=== PATIENT | male | born 1990 | race Caucasian/White ===

== ENCOUNTER 2017-04-04 20:12 | Inpatient (IN) | payer MEDICAID ==
[~2017-04-04] VITALS: Ht 193 cm; Wt 79.4 kg
[~2017-04-04 20:12] MED LIST: OLAN10TA3 PO
[2017-04-04] MEDS ORDERED: PALI6 PO (20:16)
[2017-04-04 20:31] LABS: BASOPHILS % (AUTO) 0.3 % (0.0-2.0); EOSINOPHILS % (AUTO) 1.2 % (1.0-6.0); HEMOGLOBIN 18.5 g/dL (13.5-17.5); MEAN CORPUSCULAR HEMOGLOBIN 29.5 pg (26.0-34.0); MEAN CORPUSCULAR HGB CONC 32.9 G/dL (31.0-37.0); MEAN CORPUSCULAR VOLUME 90 fL (80-100); MONOCYTES # (AUTO) 0.7 K/uL (0.1-1.0); MONOCYTES % (AUTO) 6.1 % (2.0-9.0); NEUTROPHILS # (AUTO) 7.3 K/uL (1.8-7.7); NEUTROPHILS % (AUTO) 65.4 % (40.0-70.0); PLATELET COUNT (AUTO) 227 K/uL (150-450); RED BLOOD CELL COUNT(AUTO) 6.27 MIL/uL (4.50-5.90); RED CELL DISTRIBUTION WIDTH 13.7 % (11.5-14.5); WHITE BLOOD COUNT (AUTO) 11.2 K/uL (4.5-11.0)
[2017-04-04 20:37] LABS: HEMATOCRIT 56.3 % (41-53)
[2017-04-04 20:45] LABS: ANION GAP 13 mmol/L (8-16); CALCIUM, TOTAL 9.2 mg/dL (8.8-10.5); CARBON DIOXIDE 23 mmol/L (22-29); CHLORIDE 101 mmol/L (98-107); GLOMERULAR FILTR. RATE CALC > 60 mL/min (>60); POTASSIUM 4.3 mmol/L (3.5-5.1); SODIUM SERUM 137 mmol/L (136-145); UREA NITROGEN, BLOOD 8 mg/dL (7-18)
[2017-04-04 20:53] LABS: ALANINE AMINOTRANSFERASE 36 U/L (12-78); ALBUMIN 4.8 g/dL (3.4-5.0); ASPARTATE AMINOTRANSFERASE 20 U/L (15-37); BILIRUBIN,TOTAL 0.6 mg/dL (0.1-1.0)
[2017-04-04] MEDS ORDERED: HALOPERIDOL LACTATE 5 MG/ML VIAL IM ONE (21:00)
[2017-04-04] MEDS ORDERED: LORazepam 2 MG/ML VIAL IM ONE (21:00)
[2017-04-04] MEDS ORDERED: DiphenhydrAMINE HCL 50 MG/ML VIAL IM ONE (21:00)
[2017-04-04] MEDS ORDERED: OLANZapine 5 MG RAPDIS TABLET PO PRN (22:30)
[2017-04-04 22:36] VITALS: BP 148/96
[2017-04-05 01:14] VITALS: BP 142/90
[2017-04-05 07:57] LABS: CHOL/HDL RATIO 5.8 (4.2-7.3)
[2017-04-05 09:06] VITALS: BP 105/62
[2017-04-05] MEDS: PALIPERIDONE 6 MG ER TABLET PO SCH (10:38)
[2017-04-05] MEDS ORDERED: ACETAMINOPHEN 325 MG TABLET PO PRN (12:00)
[2017-04-05] MEDS ORDERED: HydrOXYzine PAMOATE 50 MG CAPSULE PO PRN (12:00)
[2017-04-05] MEDS ORDERED: PROMETHAZINE HCL 25 MG TABLET PO PRN (12:00)
[2017-04-05] MEDS ORDERED: TUBERCULIN, PURIFIED PROTEIN DERIVATIVE 5 TU/0.1 ML SYG ID ONE (12:00)
[2017-04-05] MEDS ORDERED: MAG HYDROX/AL HYDROX/SIMETH ES 30 ML SUSPENSION UDCUP PO PRN (12:00)
[2017-04-05] MEDS ORDERED: MAGNESIUM HYDROXIDE SUSPENSION 30 ML UDCUP PO PRN (12:00)
[2017-04-05] MEDS ORDERED: GuaiFENesin/D-METHORPHAN [SUGAR-FREE] 200-20MG/10 ML SYRUP UDCUP PO PRN (12:00)
[2017-04-05] MEDS ORDERED: LOPERAMIDE HCL 2 MG CAPSULE PO PRN (12:00)
[2017-04-05] MEDS: THIAMINE HCL 100 MG TABLET PO SCH (16:59)
[2017-04-06] MEDS: NALTREXONE HCL 50 MG TABLET PO SCH (08:54)
[2017-04-06] MEDS: PALIPERIDONE 6 MG ER TABLET PO SCH (08:54)
[2017-04-06] MEDS: THIAMINE HCL 100 MG TABLET PO SCH ×2 (08:54→16:29)
[2017-04-06] MEDS: FOLIC ACID 1 MG TABLET PO SCH (08:54)
[2017-04-06] MEDS: MULTIVITAMINS WITH MINERALS, THERAPEUTIC TABLET PO SCH (08:54)
[2017-04-06 08:55] VITALS: BP 121/68
[2017-04-06] MEDS ORDERED: PALI234D IM (10:20)
[2017-04-06 16:05] VITALS: BP 121/68
[2017-04-06] MEDS: LORazepam 2 MG TABLET PO PRN (17:40)
[2017-04-07 08:31] VITALS: BP 125/77
[2017-04-07 08:32] VITALS: BP 125/77
[2017-04-07] MEDS: PALIPERIDONE 6 MG ER TABLET PO SCH (08:52)
[2017-04-07] MEDS: NALTREXONE HCL 50 MG TABLET PO SCH (08:52)
[2017-04-07] MEDS: FOLIC ACID 1 MG TABLET PO SCH (08:55)
[2017-04-07] MEDS: MULTIVITAMINS WITH MINERALS, THERAPEUTIC TABLET PO SCH (08:55)
[2017-04-07] MEDS: THIAMINE HCL 100 MG TABLET PO SCH ×2 (08:55→16:52)
[2017-04-07 16:25] VITALS: BP 119/67
[2017-04-07] MEDS: LORazepam 2 MG TABLET PO PRN (17:16)
[2017-04-08] MEDS: THIAMINE HCL 100 MG TABLET PO SCH ×2 (07:44→16:02)
[2017-04-08] MEDS: FOLIC ACID 1 MG TABLET PO SCH (07:45)
[2017-04-08] MEDS: NALTREXONE HCL 50 MG TABLET PO SCH (07:46)
[2017-04-08] MEDS: PALIPERIDONE 6 MG ER TABLET PO SCH (07:46)
[2017-04-08] MEDS: LORazepam 2 MG TABLET PO PRN ×2 (07:47→15:50)
[2017-04-08] MEDS: MULTIVITAMINS WITH MINERALS, THERAPEUTIC TABLET PO SCH (07:47)
[2017-04-08 08:31] VITALS: BP 125/76
[2017-04-08 16:17] VITALS: BP 113/73
[2017-04-08 16:30] VITALS: BP 113/73
[2017-04-08] MEDS: ZOLPIDEM TARTRATE 10 MG TABLET PO PRN (23:00)
[2017-04-09] MEDS: LORazepam 2 MG TABLET PO PRN (04:52)
[2017-04-09] MEDS: THIAMINE HCL 100 MG TABLET PO SCH ×2 (08:23→16:29)
[2017-04-09] MEDS: NALTREXONE HCL 50 MG TABLET PO SCH (08:23)
[2017-04-09] MEDS: MULTIVITAMINS WITH MINERALS, THERAPEUTIC TABLET PO SCH (08:23)
[2017-04-09] MEDS: FOLIC ACID 1 MG TABLET PO SCH (08:23)
[2017-04-09] MEDS: PALIPERIDONE 6 MG ER TABLET PO SCH (08:24)
[2017-04-09 09:07] VITALS: BP 119/68
[2017-04-09] MEDS: ZOLPIDEM TARTRATE 10 MG TABLET PO PRN (20:36)
[2017-04-10] MEDS: LORazepam 2 MG TABLET PO PRN (08:22)
[2017-04-10] MEDS: MULTIVITAMINS WITH MINERALS, THERAPEUTIC TABLET PO SCH (08:22)
[2017-04-10] MEDS: FOLIC ACID 1 MG TABLET PO SCH (08:22)
[2017-04-10] MEDS: PALIPERIDONE 6 MG ER TABLET PO SCH (08:22)
[2017-04-10] MEDS: THIAMINE HCL 100 MG TABLET PO SCH ×2 (08:22→16:26)
[2017-04-10] MEDS: NALTREXONE HCL 50 MG TABLET PO SCH (08:23)
[2017-04-10 08:51] VITALS: BP 131/84
[2017-04-10 16:54] VITALS: BP 124/68
[2017-04-11] MEDS: ZOLPIDEM TARTRATE 10 MG TABLET PO PRN (02:41)
[2017-04-11] MEDS: LORazepam 2 MG TABLET PO PRN ×2 (02:41→18:20)
[2017-04-11] MEDS: NALTREXONE HCL 50 MG TABLET PO SCH (08:47)
[2017-04-11] MEDS: MULTIVITAMINS WITH MINERALS, THERAPEUTIC TABLET PO SCH (08:47)
[2017-04-11] MEDS: FOLIC ACID 1 MG TABLET PO SCH (08:47)
[2017-04-11] MEDS: THIAMINE HCL 100 MG TABLET PO SCH ×2 (08:47→16:20)
[2017-04-11] MEDS: PALIPERIDONE 6 MG ER TABLET PO SCH (08:48)
[2017-04-11 08:52] VITALS: BP 106/81
[2017-04-11 18:18] VITALS: BP 125/72
[2017-04-12] MEDS: FOLIC ACID 1 MG TABLET PO SCH (07:58)
[2017-04-12] MEDS: THIAMINE HCL 100 MG TABLET PO SCH ×2 (07:58→17:16)
[2017-04-12] MEDS: MULTIVITAMINS WITH MINERALS, THERAPEUTIC TABLET PO SCH (07:58)
[2017-04-12] MEDS: NALTREXONE HCL 50 MG TABLET PO SCH (07:58)
[2017-04-12] MEDS: PALIPERIDONE 6 MG ER TABLET PO SCH (07:59)
[2017-04-12 08:30] VITALS: BP 133/99
[2017-04-12 16:00] VITALS: BP 130/89
[2017-04-12] MEDS ORDERED: PALI6 PO (17:19)
[2017-04-12] MEDS ORDERED: NALT50 PO (17:19)
== END 2017-04-12 20:05 | disposition home or self-care (01) | DRG 750 ==
LOC: EMS 20:17 → 3EC 22:50
PROVIDERS: ADMIT Psychiatry & Neurology Psychiatry; ATTEND Psychiatry & Neurology Psychiatry
DX: F20.0 Paranoid schizophrenia (principal); G93.41 Metabolic encephalopathy; J44.9 Chronic obstructive pulmonary disease, unspecified; Z91.14 Patient's other noncompliance with medication regimen; F19.10 Other psychoactive substance abuse, uncomplicated; F17.200 Nicotine dependence, unspecified, uncomplicated
CPT/HCPCS: 86592; 96372; 99285; G0480; J1200; J1630; J2060

== ENCOUNTER 2017-04-13 18:12 | Emergency (ER) | payer MEDICAID ==
[~2017-04-13] VITALS: Ht 190.5 cm; Wt 81.8 kg
[~2017-04-13 18:12] MED LIST changes: +NALT50 PO; -OLAN10TA3 PO; +PALI6 PO
[2017-04-13 18:50] VITALS: BP 134/82
[2017-04-13] MEDS ORDERED: IBUPROFEN 800 MG TABLET PO ONE (19:00)
[2017-04-14] MEDS ORDERED: DIVA500T35 PO (10:45)
[2017-04-14] MEDS ORDERED: OLAN10TA3 PO (10:45)
== END 2017-04-13 19:22 | disposition home or self-care (01) ==
LOC: EMS 18:17
DX: S90.822A Blister (nonthermal), left foot, initial encounter (principal); S90.821A Blister (nonthermal), right foot, initial encounter; X58.XXXA Exposure to other specified factors, initial encounter; Y93.01 Activity, walking, marching and hiking; Y92.89 Other specified places as the place of occurrence of the external cause; Y99.8 Other external cause status
CPT/HCPCS: 99283

== ENCOUNTER 2017-04-14 10:17 | Inpatient (IN) | payer MEDICAID ==
[~2017-04-14] VITALS: Ht 180.3 cm; Wt 79.8 kg
[2017-04-14] MEDS ORDERED: DIVA500T35 PO (10:45)
[2017-04-14] MEDS ORDERED: OLAN10TA3 PO (10:45)
[2017-04-14 10:58] LABS: BASOPHILS % (AUTO) 0.2 % (0.0-2.0); EOSINOPHILS % (AUTO) 0.9 % (1.0-6.0); HEMATOCRIT 51.3 % (41-53); LYMPHOCYTES # (AUTO) 1.9 K/uL (1.0-4.8); LYMPHOCYTES % (AUTO) 14.4 % (22.0-44.0); MEAN CORPUSCULAR HEMOGLOBIN 29.5 pg (26.0-34.0); MEAN CORPUSCULAR HGB CONC 33.2 G/dL (31.0-37.0); MEAN CORPUSCULAR VOLUME 89 fL (80-100); MONOCYTES % (AUTO) 7.3 % (2.0-9.0); NEUTROPHILS # (AUTO) 10.4 K/uL (1.8-7.7); NEUTROPHILS % (AUTO) 77.2 % (40.0-70.0); PLATELET COUNT (AUTO) 231 K/uL (150-450); RED BLOOD CELL COUNT(AUTO) 5.78 MIL/uL (4.50-5.90); RED CELL DISTRIBUTION WIDTH 13.7 % (11.5-14.5); WHITE BLOOD COUNT (AUTO) 13.5 K/uL (4.5-11.0)
[2017-04-14 11:08] LABS: ANION GAP 6 mmol/L (8-16); CARBON DIOXIDE 30 mmol/L (22-29); CHLORIDE 102 mmol/L (98-107); GLOMERULAR FILTR. RATE CALC > 60 mL/min (>60); POTASSIUM 4.2 mmol/L (3.5-5.1); SODIUM SERUM 138 mmol/L (136-145); UREA NITROGEN, BLOOD 10 mg/dL (7-18)
[2017-04-14 11:14] LABS: ALANINE AMINOTRANSFERASE 42 U/L (12-78); ALBUMIN 4.3 g/dL (3.4-5.0); ASPARTATE AMINOTRANSFERASE 23 U/L (15-37); BILIRUBIN,TOTAL 0.7 mg/dL (0.1-1.0); VALPROIC ACID 16 mcg/mL (50-100)
[2017-04-14] MEDS ORDERED: PROMETHAZINE HCL 25 MG TABLET PO PRN (11:45)
[2017-04-14] MEDS ORDERED: GuaiFENesin/D-METHORPHAN [SUGAR-FREE] 200-20MG/10 ML SYRUP UDCUP PO PRN (11:45)
[2017-04-14] MEDS ORDERED: LOPERAMIDE HCL 2 MG CAPSULE PO PRN (11:45)
[2017-04-14] MEDS ORDERED: MAG HYDROX/AL HYDROX/SIMETH ES 30 ML SUSPENSION UDCUP PO PRN (11:45)
[2017-04-14] MEDS ORDERED: MAGNESIUM HYDROXIDE SUSPENSION 30 ML UDCUP PO PRN (11:45)
[2017-04-14] MEDS ORDERED: HydrOXYzine PAMOATE 50 MG CAPSULE PO PRN (11:45)
[2017-04-14] MEDS ORDERED: ACETAMINOPHEN 325 MG TABLET PO PRN (11:45)
[2017-04-14] MEDS: THIAMINE HCL 100 MG TABLET PO SCH (16:44)
[2017-04-14 16:46] VITALS: BP 121/72
[2017-04-14] MEDS ORDERED: PNEUMOCOCCAL VACCINE POLYVALENT 0.5 ML VIAL [PPSV23] IM ONE (18:00)
[2017-04-14] MEDS: DIVALPROEX SODIUM 500 MG ER TABLET PO SCH (20:22)
[2017-04-14] MEDS: OLANZapine 7.5 MG TABLET PO SCH (20:22)
[2017-04-14] MEDS: NALTREXONE HCL 50 MG TABLET PO SCH (20:24)
[2017-04-15 06:41] VITALS: BP 109/68
[2017-04-15 08:16] LABS: BASOPHILS % (AUTO) 0.4 % (0.0-2.0); HEMATOCRIT 50.5 % (41-53); HEMOGLOBIN 16.4 g/dL (13.5-17.5); LYMPHOCYTES # (AUTO) 3.1 K/uL (1.0-4.8); LYMPHOCYTES % (AUTO) 31.5 % (22.0-44.0); MEAN CORPUSCULAR HEMOGLOBIN 29.1 pg (26.0-34.0); MEAN CORPUSCULAR HGB CONC 32.4 G/dL (31.0-37.0); MEAN CORPUSCULAR VOLUME 90 fL (80-100); MONOCYTES # (AUTO) 0.7 K/uL (0.1-1.0); MONOCYTES % (AUTO) 7.5 % (2.0-9.0); NEUTROPHILS # (AUTO) 5.7 K/uL (1.8-7.7); NEUTROPHILS % (AUTO) 58.6 % (40.0-70.0); PLATELET COUNT (AUTO) 244 K/uL (150-450); RED BLOOD CELL COUNT(AUTO) 5.62 MIL/uL (4.50-5.90); RED CELL DISTRIBUTION WIDTH 13.4 % (11.5-14.5); WHITE BLOOD COUNT (AUTO) 9.7 K/uL (4.5-11.0)
[2017-04-15] MEDS: LORazepam 2 MG TABLET PO PRN ×2 (08:18→16:22)
[2017-04-15] MEDS: FOLIC ACID 1 MG TABLET PO SCH (08:18)
[2017-04-15] MEDS: MULTIVITAMINS WITH MINERALS, THERAPEUTIC TABLET PO SCH (08:18)
[2017-04-15] MEDS: THIAMINE HCL 100 MG TABLET PO SCH ×2 (08:18→16:22)
[2017-04-15] MEDS: NICOTINE 21 MG/24 HOUR PATCH TD SCH (08:19)
[2017-04-15] MEDS: OLANZapine 5 MG RAPDIS TABLET PO PRN (08:19)
[2017-04-15] MEDS: CLOTRIMAZOLE 1% 15 GM CREAM TP SCH ×2 (08:19→17:37)
[2017-04-15 08:59] LABS: ALANINE AMINOTRANSFERASE 33 U/L (12-78); ALBUMIN 3.8 g/dL (3.4-5.0); ANION GAP 7 mmol/L (8-16); ASPARTATE AMINOTRANSFERASE 14 U/L (15-37); BILIRUBIN,TOTAL 0.6 mg/dL (0.1-1.0); CALCIUM, TOTAL 8.8 mg/dL (8.8-10.5); CARBON DIOXIDE 28 mmol/L (22-29); CHLORIDE 106 mmol/L (98-107); CREATININE 1.06 mg/dL (0.60-1.30); GLOMERULAR FILTR. RATE CALC > 60 mL/min (>60); POTASSIUM 4.5 mmol/L (3.5-5.1); SODIUM SERUM 141 mmol/L (136-145); TOTAL PROTEIN, SERUM 6.2 g/dL (6.4-8.2); UREA NITROGEN, BLOOD 14 mg/dL (7-18); VALPROIC ACID 59 mcg/mL (50-100)
[2017-04-15 09:24] VITALS: BP 106/56
[2017-04-15 16:07] VITALS: BP 117/66
[2017-04-15] MEDS: DIVALPROEX SODIUM 500 MG ER TABLET PO SCH (20:46)
[2017-04-15] MEDS: OLANZapine 7.5 MG TABLET PO SCH (20:46)
[2017-04-15] MEDS: NALTREXONE HCL 50 MG TABLET PO SCH (20:47)
[2017-04-15] MEDS: ZOLPIDEM TARTRATE 10 MG TABLET PO PRN (21:06)
[2017-04-16 06:33] VITALS: BP 107/69
[2017-04-16 08:08] VITALS: BP 125/63
[2017-04-16] MEDS: MULTIVITAMINS WITH MINERALS, THERAPEUTIC TABLET PO SCH (08:55)
[2017-04-16] MEDS: FOLIC ACID 1 MG TABLET PO SCH (08:55)
[2017-04-16] MEDS: THIAMINE HCL 100 MG TABLET PO SCH ×2 (08:55→16:58)
[2017-04-16] MEDS: CLOTRIMAZOLE 1% 15 GM CREAM TP SCH ×2 (08:55→16:58)
[2017-04-16] MEDS: NICOTINE 21 MG/24 HOUR PATCH TD SCH (08:55)
[2017-04-16 16:00] VITALS: BP 121/66
[2017-04-16] MEDS: LORazepam 2 MG TABLET PO PRN (16:58)
[2017-04-16] MEDS: OLANZapine 7.5 MG TABLET PO SCH (20:39)
[2017-04-16] MEDS: DIVALPROEX SODIUM 500 MG ER TABLET PO SCH (20:39)
[2017-04-16] MEDS: NALTREXONE HCL 50 MG TABLET PO SCH (20:39)
[2017-04-16] MEDS: ZOLPIDEM TARTRATE 10 MG TABLET PO PRN (20:39)
[2017-04-17 05:40] VITALS: BP 113/62
[2017-04-17 08:11] VITALS: BP 115/63
[2017-04-17] MEDS: MULTIVITAMINS WITH MINERALS, THERAPEUTIC TABLET PO SCH (08:25)
[2017-04-17] MEDS: THIAMINE HCL 100 MG TABLET PO SCH ×2 (08:25→16:47)
[2017-04-17] MEDS: FOLIC ACID 1 MG TABLET PO SCH (08:25)
[2017-04-17] MEDS: NICOTINE 21 MG/24 HOUR PATCH TD SCH (08:26)
[2017-04-17] MEDS: CLOTRIMAZOLE 1% 15 GM CREAM TP SCH ×2 (08:26→16:47)
[2017-04-17 16:00] VITALS: BP 122/68
[2017-04-17] MEDS: LORazepam 2 MG TABLET PO PRN (16:47)
[2017-04-17] MEDS: NALTREXONE HCL 50 MG TABLET PO SCH (20:18)
[2017-04-17] MEDS: DIVALPROEX SODIUM 500 MG ER TABLET PO SCH (20:18)
[2017-04-17] MEDS: OLANZapine 7.5 MG TABLET PO SCH (20:18)
[2017-04-17] MEDS: ZOLPIDEM TARTRATE 10 MG TABLET PO PRN (20:19)
[2017-04-18 06:10] VITALS: BP 104/60
[2017-04-18 08:35] VITALS: BP 107/69
[2017-04-18] MEDS: MULTIVITAMINS WITH MINERALS, THERAPEUTIC TABLET PO SCH (09:09)
[2017-04-18] MEDS: FOLIC ACID 1 MG TABLET PO SCH (09:09)
[2017-04-18] MEDS: THIAMINE HCL 100 MG TABLET PO SCH ×2 (09:09→17:04)
[2017-04-18] MEDS: CLOTRIMAZOLE 1% 15 GM CREAM TP SCH ×2 (09:10→17:05)
[2017-04-18] MEDS: NICOTINE 21 MG/24 HOUR PATCH TD SCH (09:10)
[2017-04-18 16:00] VITALS: BP 122/73
[2017-04-18] MEDS: LORazepam 2 MG TABLET PO PRN (17:04)
[2017-04-18] MEDS: NALTREXONE HCL 50 MG TABLET PO SCH (20:34)
[2017-04-18] MEDS: DIVALPROEX SODIUM 500 MG ER TABLET PO SCH (20:34)
[2017-04-18] MEDS: OLANZapine 10 MG TABLET PO SCH (20:34)
[2017-04-18] MEDS: ZOLPIDEM TARTRATE 10 MG TABLET PO PRN (20:35)
[2017-04-19 06:56] VITALS: BP 127/68
[2017-04-19] MEDS: CLOTRIMAZOLE 1% 15 GM CREAM TP SCH ×2 (08:16→17:03)
[2017-04-19] MEDS: OLANZapine 5 MG RAPDIS TABLET PO PRN (08:17)
[2017-04-19] MEDS: LORazepam 2 MG TABLET PO PRN ×2 (08:17→08:18)
[2017-04-19] MEDS: MULTIVITAMINS WITH MINERALS, THERAPEUTIC TABLET PO SCH (08:17)
[2017-04-19] MEDS: THIAMINE HCL 100 MG TABLET PO SCH ×2 (08:17→16:51)
[2017-04-19] MEDS: FOLIC ACID 1 MG TABLET PO SCH (08:17)
[2017-04-19] MEDS: NICOTINE 21 MG/24 HOUR PATCH TD SCH (08:20)
[2017-04-19 08:58] LABS: APPEARANCE,URINE CLEAR (CLEAR); GLUCOSE, URINE (UA) NEGATIVE (NEGATIVE); KETONES,URINE NEGATIVE (NEGATIVE); LEUKOCYTE ESTERASE ,URINE NEGATIVE (NEGATIVE); OCCULT BLOOD,URINE NEGATIVE (NEGATIVE); PH,URINE 6.5 (5.0-8.0); PROTEIN,URINE NEGATIVE (NEGATIVE)
[2017-04-19 09:08] LABS: ADD UA MICROSCOPIC NO
[2017-04-19 09:12] VITALS: BP 107/73
[2017-04-19 16:11] VITALS: BP 127/72
[2017-04-19] MEDS: OLANZapine 10 MG TABLET PO SCH (20:09)
[2017-04-19] MEDS: DIVALPROEX SODIUM 500 MG ER TABLET PO SCH (20:09)
[2017-04-19] MEDS: NALTREXONE HCL 50 MG TABLET PO SCH (20:09)
[2017-04-20 04:10] VITALS: BP 126/68
[2017-04-20 08:21] VITALS: BP 112/68
[2017-04-20] MEDS: MULTIVITAMINS WITH MINERALS, THERAPEUTIC TABLET PO SCH (09:43)
[2017-04-20] MEDS: FOLIC ACID 1 MG TABLET PO SCH (09:43)
[2017-04-20] MEDS: NICOTINE 21 MG/24 HOUR PATCH TD SCH (09:43)
[2017-04-20] MEDS: THIAMINE HCL 100 MG TABLET PO SCH ×2 (09:43→16:24)
[2017-04-20] MEDS: CLOTRIMAZOLE 1% 15 GM CREAM TP SCH ×2 (09:43→16:24)
[2017-04-20] MEDS: LORazepam 2 MG TABLET PO PRN (09:43)
[2017-04-20] MEDS ORDERED: OLAN10TA20 PO (13:12)
[2017-04-20] MEDS ORDERED: DIVA500T52 PO ×2 (13:12→14:18)
[2017-04-20] MEDS ORDERED: NALT50 PO ×2 (13:12→14:18)
[2017-04-20 16:00] VITALS: BP 121/82
== END 2017-04-20 18:10 | disposition home or self-care (01) | DRG 750 ==
LOC: EEVIPCON 10:19 → EMS 10:19 → B3A 13:49
PROVIDERS: ADMIT Psychiatry & Neurology Psychiatry; ATTEND Psychiatry & Neurology Psychiatry
DX: F20.0 Paranoid schizophrenia (principal); G93.41 Metabolic encephalopathy; J44.9 Chronic obstructive pulmonary disease, unspecified; D75.1 Secondary polycythemia; Z91.14 Patient's other noncompliance with medication regimen; F19.10 Other psychoactive substance abuse, uncomplicated; F17.200 Nicotine dependence, unspecified, uncomplicated; D72.829 Elevated white blood cell count, unspecified; E78.5 Hyperlipidemia, unspecified; Z72.0 Tobacco use; R45.851 Suicidal ideations
CPT/HCPCS: 87081; 93005; 99285; G0480

== ENCOUNTER 2022-08-10 10:36 | Emergency (ER) | payer MEDICAID ==
[~2022-08-10] VITALS: Ht 182.9 cm; Wt 76.4 kg
[~2022-08-10 10:36] MED LIST changes: +DIVA-80 PO; -NALT50 PO; +NALT50TA6 PO; +OLAN10 PO; +OLAN10TA74 PO; -PALI6 PO
[2022-08-10 13:29] VITALS: BP 122/68
== END 2022-08-10 13:48 | disposition left against medical advice (07) ==
LOC: EMS 10:40
DX: Z04.6 Encounter for general psychiatric examination, requested by authority (principal); Z53.21 Procedure and treatment not carried out due to patient leaving prior to being seen by health care provider